=== PATIENT | male | born 1960 | race Hispanic/Latino ===

== ENCOUNTER 2016-11-06 10:42 | Day surgery (SDC) | payer OTHER, MEDICARE ==
[2016-10-26 10:37] VITALS: BMI 33.5
[2016-11-06] MEDS ORDERED: Propofol 10 mg/ml Inj (20 ML) ONE ×2 (12:31→13:02)
[2016-11-06] MEDS ORDERED: Sodium Chloride 0.9% 1,000 ML IV SCH (13:30)
[2016-11-06 13:55] VITALS: O2SAT 96
[2016-11-06 14:11] VITALS: BP 119/78; PULSE 72; RESP 20; TEMP 97.7
== END 2016-11-06 14:50 | disposition home or self-care (01) ==
LOC: ENDO 10:42
PROVIDERS: ATTEND Internal Medicine Gastroenterology
DX: D12.3 Benign neoplasm of transverse colon (principal); D12.0 Benign neoplasm of cecum; K63.5 Polyp of colon; K62.0 Anal polyp; K64.8 Other hemorrhoids
CPT/HCPCS: 45380; 45385; 88305; J2001; J2704; J7040 ×2

== ENCOUNTER 2017-11-07 10:07 | Inpatient (IN) | payer OTHER, MEDICARE ==
--- NOTE | 2017-11-07 11:25 | ED PDOC ---
Arrival/HPI <Woo Alonso - Last Filed: 11/07/17 15:34> <Jenae Peters - Last Filed: 11/10/17 08:14> - General Chief Complaint: Abdominal Pain Time Seen by Provider: 11/07/17 10:59 - History of Present Illness Narrative History of Present Illness (Text): 57 year old male with PMH of Hodgkin's lymphoma, Hairy Cell Leukemia, PE, SVT, Atrial firbrillation, Pneumonia, and Shingles presents with 5 days of intermittent left back pain that radiates to the groin. Patient vomited Saturday, reported dysuria, but has had neither of the symptoms since then. He riley to the ER last Saturday and had a CT scan confirming the nephrolithiasis. He saw his urologist, Dr. Craft, 2 days ago who ordered an X-ray for the patient. The results arrived yesterdays showing a [address] Craft instructed the patient to come to the [facility] ER to be seen and admitted to Dr. Huber 11/07/17 11:21 11/07/17 12:27 (Woo Alonso) Past Medical History - Provider Review Nursing Documentation Reviewed: Yes - Infectious Disease Hx of Infectious Diseases: None - Cardiac Hx Pacemaker: No - Neurological Hx Paralysis: No - Hematological/Oncological Hx Blood Transfusions: Yes (2010- TOTAL 8) Hx Blood Transfusion Reaction: No - Musculoskeletal/Rheumatological Hx Musculoskeletal Disorders: Yes - Psychiatric Hx Emotional Abuse: No Hx Physical Abuse: No Hx Substance Use: No - Anesthesia Hx Anesthesia Reactions: Yes (NAUSEA) Hx Malignant Hyperthermia: No - Suicidal Assessment Feels Threatened In Home Enviroment: No <Woo Alonso - Last Filed: 11/07/17 15:34> Family/Social History - Physician Review Nursing Documentation Reviewed: Yes Family/Social History: Unknown Family HX Smoking Status: Unknown If Ever Smoked Hx Alcohol Use: No Hx Substance Use: No <Woo Alonso - Last Filed: 11/07/17 15:34> Allergies/Home Meds <Woo Alonso - Last Filed: 11/07/17 15:34> <Jenae Peters - Last Filed: 11/10/17 08:14> Allergies/Adverse Reactions: Allergies No Known Allergies Allergy (Verified 11/07/17 15:25) Home Medications: Home Meds Medication Instructions Recorded Confirmed Allopurinol 100 mg PO QAM 11/03/15 11/07/17 Cholecalciferol (Vitamin D3) 50,000 unit PO WED 11/03/15 11/07/17 [Vitamin D3] Fenofibrate 48 mg PO QAM 11/03/15 11/07/17 Gabapentin [Gralise] 1,800 mg PO DIN 11/03/15 11/07/17 LORazepam [Ativan] 0.5 mg PO HS PRN 11/03/15 11/07/17 Prednisone 5 mg PO WED 11/03/15 11/07/17 Sotalol HCl [Sotalol] 80 mg PO BID 11/03/15 11/07/17 oxyCODONE [oxyCODONE Immediate 30 mg PO PRN PRN 11/03/15 11/07/17 Release Tab] Apixaban [Eliquis] 5 mg PO BID 10/26/16 11/07/17 Sertraline [Zoloft] 100 mg PO DAILY 11/07/17 11/07/17 Review of Systems - Physician Review All systems were reviewed & negative as marked: Yes - Review of Systems Constitutional: Normal Eyes: Normal ENT: Normal Respiratory: Normal Cardiovascular: Normal Gastrointestinal: Abdominal Pain (flank pain radiating to groin pain), Vomiting Genitourinary Male: Dysuria Musculoskeletal: Normal Skin: Normal Neurological: Normal <Woo Alonso - Last Filed: 11/07/17 15:34> Physical Exam Vital Signs Reviewed: Yes Temperature: Afebrile Blood Pressure: Normal Pulse: Regular Respiratory Rate: Normal Appearance: Positive for: Well-Appearing Pain Distress: None Mental Status: Positive for: Alert and Oriented X 3 - Systems Exam Head: Present: Atraumatic, Normocephalic Pupils: Present: PERRL Extroacular Muscles: Present: EOMI Conjunctiva: Present: Normal Nose (External): Present: Atraumatic Neck: Present: Normal Range of Motion Respiratory/Chest: Present: Clear to Auscultation Cardiovascular: Present: Regular Rate and Rhythm Abdomen: Present: Tenderness (LLQ) Back: Present: Other (flank pain) Upper Extremity: Present: Normal Inspection, Normal ROM, NORMAL PULSES Lower Extremity: Present: Normal Inspection, NORMAL PULSES, Normal ROM Neurological: Present: GCS=15, CN II-XII Intact, Speech Normal, Motor Func Grossly Intact Skin: Present: Warm, Dry, Normal Color Psychiatric: Present: Alert, Oriented x 3, Normal Insight, Normal Concentration <Woo Alonso - Last Filed: 11/07/17 15:34> <Jenae Peters - Last Filed: 11/10/17 08:14> Vital Signs Temp Pulse Resp BP Pulse Ox 11/07/17 14:08 100.0 F H 68 20 124/75 96 11/07/17 10:55 98.5 F 82 18 121/63 97 Medical Decision Making <Woo Alonso - Last Filed: 11/07/17 15:34> <Jenae Peters - Last Filed: 11/10/17 08:14> ED Course and Treatment: Impression: 57 year old male presents with 5 day history of flank pain radiating to his groin, 1 episode of vomiting 5 days ago, and 1 episode of dysuria 5 days ago. Assessment: nephrolithasis Plan: Ceftriaxone 1 gm IV NS 0.9% 1L CBC: WBC: 3.3. possibly due to chemotherapy patient was on CMP PT/INR PTT UA UC CXR: no active pulmonary disease EKG: Normal sinus rhythm Vent rate: 72 DE: 172 QRS: 86 QT/QTc: 410/448 11/07/17 15:34 (Woo Alonso) 11/07/17 14:42 57 year old male presents to the Emergency department for left flank pain. In agreement with resident note, which includes further HPI details. Patient was seen and evaluated with resident, came up with plan and treatment together. I reviewed patient's recent xray and reviewed with patient his understanding of his recent CT. While in ED he denies severe pain but does have persistent discomfort. Afebrile. No chills or nausea currently. Abdomen soft and nontender. I communicated with Dr. Craft and patient admitted due to persistent renal colic. (Jenae Peters) - Lab Interpretations Microbiology Results: Microbiology Results 11/07/17 12:20 Urine Urine Culture - Final No Growth (<1,000 CFU/ML) Lab Results: 11/07/17 12:20 11/07/17 12:20 Lab Results 11/07/17 12:20: Urine Color Yellow, Urine Appearance Clear, Urine pH 6.0, Ur Specific [place] 1.020, Urine Protein Negative, Urine Glucose (UA) Negative, Urine Ketones Negative, Urine Blood Moderate H, Urine Nitrate Negative, Urine Bilirubin Negative, Urine Urobilinogen 0.2, Ur Leukocyte Esterase Negative, Urine RBC 15 - 20, Urine WBC 0 - 2, Ur Epithelial Cells None 11/07/17 12:20: Sodium 139, Potassium 4.5, Chloride 105, Carbon Dioxide 24, Anion Gap 14, BUN 19, Creatinine 0.9, Est GFR ( Amer) > 60, Est GFR (Non- Af Amer) > 60, Random Glucose 105, Calcium 9.6, Total Bilirubin 0.7, AST 62 H, ALT 90 H, Alkaline Phosphatase 78, Total Protein 7.8, Albumin 4.5, Globulin 3.3 , Albumin/Globulin Ratio 1.4 11/07/17 12:20: WBC 3.3 L D, RBC 4.44, Hgb 14.1, Hct 40.9 L, MCV 92.1, MCH 31.8 , MCHC 34.5, RDW 12.6, Plt Count 119 L, MPV 9.8, Gran % 59.5, Lymph % (Auto) 34.7, [place] % (Auto) 3.4, Eos % (Auto) 2.1, Baso % (Auto) 0.3, Gran # 1.94, Lymph # (Auto) 1.1 L, [place] # (Auto) 0.1, Eos # (Auto) 0.1, Baso # (Auto) 0.01 11/07/17 11:19: PT 11.0, INR 0.96, APTT 22.1 L - RAD Interpretation Radiology Orders: 11/07/17 11:20 CHEST PORTABLE [RAD] Stat - Medication Orders Current Medication Orders: Discontinued Medications Allopurinol (Zyloprim) 100 mg PO QAM [facility] Last Admin: 11/08/17 11:35 Dose: Not Given Non-Admin Reason: NPO Apixaban (Eliquis) 5 mg PO BID TED PRN Reason: Protocol Apixaban (Eliquis) 5 mg PO BID TED PRN Reason: Protocol Ergocalciferol (Drisdol 50,000 Intl Units Cap) 1 cap PO We@1000 TED Gabapentin (Neurontin) 600 mg PO TID TED PRN Reason: Protocol Last Admin: 11/08/17 18:12 Dose: 600 mg Behavioural Document 11/08/17 18:12 Y (Rec: 11/08/17 18:12 [id number] Maintenance Maintenance Dose Yes Ceftriaxone Sodium (Rocephin 1 Gram Ivpb) 1 gm in 100 mls @ 200 mls/hr IVPB ONCE STA PRN Reason: Protocol Stop: 11/07/17 12:20 Last Admin: 11/07/17 12:26 Dose: 200 mls/hr eMAR Start Stop Document 11/07/17 12:26 MR (Rec: 11/07/17 12:26 MR [id number]) Intravenous Solution Start Date 11/07/17 Start Time 12:26 End Date 11/07/17 End time 12:56 Total Infusion Time 30 Sodium Chloride (Sodium Chloride 0.9%) 1,000 mls @ 100 mls/hr IV .Q10H [facility] Last Admin: 11/08/17 08:11 Dose: 100 mls/hr eMAR Start Stop Document 11/08/17 08:11 (Rec: 11/08/17 08:11 [id number] Intravenous Solution Start Date 11/08/17 Start Time 08:11 Ceftriaxone Sodium (Rocephin 1 Gram Ivpb) 1 gm in 100 mls @ 200 mls/hr IVPB STAT STA PRN Reason: Protocol Stop: 11/08/17 13:03 Last Admin: 11/08/17 12:41 Dose: 200 mls/hr eMAR Start Stop Document 11/08/17 12:41 SABINO (Rec: 11/08/17 13:01 [id number] Intravenous Solution Start Date 11/08/17 Start Time 12:41 End Date 11/08/17 End time 13:11 Total Infusion Time 30 Lorazepam (Ativan) 0.5 mg PO HS PRN; Protocol PRN Reason: Sleep Morphine Sulfate (Morphine) 5 mg IVP Q6H PRN PRN Reason: Pain, severe (8-10) Last Admin: 11/07/17 21:01 Dose: 5 mg MAR Pain Assessment Document 11/07/17 21:01 MJ (Rec: 11/07/17 21:01 MJ [id number]) Pain Reassessment Is this a pain reassessment? Yes Sleep Is patient sleeping during reassessment? No Presence of Pain Presence of Pain Yes Pain Scale Used Pain Scale Used Numeric Location Pain Location Body Site Abdomen Description Description Constant Intensity of Pain at present 8 Pain Behavior Moaning Alleviating Factors/Management Medication Techniques IVP Administration Document 11/07/17 21:01 MJ (Rec: 11/07/17 21:01 MJ [id number]) Charges for Administration # of IVP Administrations 1 Re-Assess: MAR Pain Assessment Document 11/07/17 22:01 (Rec: 11/08/17 02:36 [id number] Pain Reassessment Is this a pain reassessment? Yes Sleep Is patient sleeping during reassessment? Yes Oxycodone HCl (Oxycodone Immediate Release Tab) 5 mg PO Q4H PRN PRN Reason: Pain, moderate (4-7) Last Admin: 11/08/17 18:12 Dose: 5 mg SHELIA Pain Assessment Document 11/08/17 18:12 Y (Rec: 11/08/17 18:12 Y [id number]) Pain Reassessment Is this a pain reassessment? No Sleep Is patient sleeping during reassessment? No Presence of Pain Presence of Pain Yes Pain Scale Used Pain Scale Used Numeric Location Left, Right or Bilateral Left Description Intensity of Pain at present 6 Phenazopyridine HCl (Pyridium) 100 mg PO [facility] Stop: 11/09/17 10:01 Last Admin: 11/08/17 18:16 Dose: 100 mg Pneumococcal Polyvalent Vaccine (Pneumovax 23 Vaccine) 0.5 ml IM .ONCE ONE Stop: 11/07/17 18:53 Sertraline HCl (Zoloft) 100 mg PO DAILY [facility] Last Admin: 11/08/17 11:35 Dose: Not Given Non-Admin Reason: NPO Sertraline HCl (Zoloft) 100 mg PO ONCE ONE Stop: 11/08/17 18:53 Sertraline HCl (Zoloft) 100 mg PO ONCE ONE Stop: 11/07/17 19:30 Last Admin: 11/07/17 20:01 Dose: 100 mg Sotalol HCl (Betapace) 80 mg PO BID [facility] Last Admin: 11/08/17 18:12 Dose: 80 mg SHELIA Pulse and Blood Pressure Document 11/08/17 18:12 Y (Rec: 11/08/17 18:13 YJ [id number]) Pulse Pulse Rate (60-90) 91 Blood Pressure Blood Pressure (100/60-150/90) 129/79 - PA / ENGINEER AND GEOLOGIST / Resident Statement BRYANNA has reviewed & agrees with the documentation as recorded. / has examined the patient and agrees with the treatment plan. <Woo Alonso - Last Filed: 11/07/17 15:34> - PA / ENGINEER AND GEOLOGIST / Resident Statement BRYANNA has reviewed & agrees with the documentation as recorded. BRYANNA has examined the patient and agrees with the treatment plan. - Scribe Statement The provider has reviewed the documentation as recorded by the Scribe <Jenae Peters - Last Filed: 11/10/17 08:14> - Scribe Statement João Tatum. All medical record entries made by the Scribe were at my direction and personally dictated by me. I have reviewed the chart and agree that the record accurately reflects my personal performance of the history, physical exam, medical decision making, and the department course for this patient. I have also personally directed, reviewed, and agree with the discharge instructions and disposition. (Jenae Peters) Disposition/Present on Arrival - Present on Arrival Any Indicators Present on Arrival: No History of DVT/PE: No History of Uncontrolled Diabetes: No Urinary Catheter: No History of Decub. Ulcer: No History Surgical Site Infection Following: None - Disposition Have Diagnosis and Disposition been Completed?: Yes Disposition Time: 12:21 Patient Plan: Admission <Woo Alonso - Last Filed: 11/07/17 15:34> <Jenea Peters - Last Filed: 11/10/17 08:14> - Disposition Diagnosis: Nephrolithiasis Disposition: HOSPITALIZED Condition: STABLE
[2017-11-07] MEDS ORDERED: cefTRIAXone 1 gm 1 GM/100 ML BAG IVPB STA (11:51)
--- NOTE | 2017-11-07 12:11 | RAD ---
Date of service: 11/07/2017 HISTORY: r/o infiltrate COMPARISON: 03/23/2015. FINDINGS: LUNGS: The lungs are well inflated and clear. PLEURA: No significant pleural effusion identified, no pneumothorax apparent. CARDIOVASCULAR: Normal. OSSEOUS STRUCTURES: No significant abnormalities. VISUALIZED UPPER ABDOMEN: Normal. OTHER FINDINGS: None. IMPRESSION: No active pulmonary disease.
[2017-11-07] MEDS: Sodium Chloride 0.9% 1,000 ML IV SCH (12:21)
[2017-11-07 12:31] LABS: URINE BILIRUBIN NEGATIVE (NEGATIVE); URINE BLOOD MODERATE (NEGATIVE); URINE GLUCOSE (UA) NEGATIVE (NEGATIVE); URINE LEUKOCYTE ESTERASE NEGATIVE Leu/uL (NEGATIVE); URINE PROTEIN NEGATIVE mg/dL (<30 mg/dL); URINE UROBILINOGEN 0.2 E.U./dL (<1 E.U./dL)
[2017-11-07 12:32] LABS: URINE APPEARANCE CLEAR (CLEAR); URINE COLOR YELLOW (YELLOW)
[2017-11-07 12:38] LABS: BASO # 0.01 K/mm3 (0.0-2.0); BASO % 0.3 % (0.0-3.0); EOS # 0.1 (0.0-0.7); EOS % 2.1 % (1.5-5.0); GRAN # 1.94 (1.4-6.5); GRAN % 59.5 % (50.0-68.0); HEMOGLOBIN 14.1 g/dL (14.0-18.0); LYMPH # 1.1 (1.2-3.4); LYMPH % 34.7 % (22.0-35.0); MEAN CELL VOLUME 92.1 fl (80.0-105.0); MEAN CORPUSCULAR HEMOGLOBIN 31.8 pg (25.0-35.0); MEAN CORPUSCULAR HGB CONC 34.5 g/dl (31.0-37.0); MEAN PLATELET VOLUME 9.8 fl (7.0-11.0); MONO # 0.1 (0.1-0.6); MONO % 3.4 % (1.0-6.0); RBC 4.44 10^6/uL (3.5-6.1); RED CELL DISTRIBUTION WIDTH 12.6 % (11.5-14.5); WHITE BLOOD COUNT 3.3 10^3/ul (4.5-11.0)
[2017-11-07 12:45] LABS: URINE RBC 15 - 20 /hpf (0-2); URINE WBC 0 - 2 /hpf (0-6)
[2017-11-07 12:49] LABS: ALB/GLOB RATIO 1.4 (1.1-1.8); ALBUMIN 4.5 g/dL (3.0-4.8); ALT/SGPT 90 U/L (7-56); AST/SGOT 62 U/L (17-59); BLOOD UREA NITROGEN 19 mg/dL (7-21); CALCIUM 9.6 mg/dL (8.4-10.5); GFR AFRICAN-AMERICAN > 60; GFR NON-AFRICAN AMERICAN > 60
[2017-11-07 12:51] LABS: INR 0.96 (0.93-1.08); PARTIAL THROMBOPLASTIN TIME 22.1 Seconds (25.1-36.5)
--- NOTE | 2017-11-07 15:03 | CT ---
Date of service: 11/07/2017 PROCEDURE: CT Abdomen and Pelvis without intravenous contrast HISTORY: kidney stone COMPARISON: None. TECHNIQUE: Without contrast.. Contrast dose: Radiation dose: Total exam DLP = 1357 mGy-cm. This CT exam was performed using one or more of the following dose reduction techniques: Automated exposure control, adjustment of the mA and/or kV according to patient size, and/or use of iterative reconstruction technique. FINDINGS: LOWER THORAX: Unremarkable. LIVER: Unremarkable. No gross lesion or ductal dilatation. GALLBLADDER AND BILE DUCTS: Unremarkable. PANCREAS: Unremarkable. No gross lesion or ductal dilatation. SPLEEN: Unremarkable. ADRENALS: Unremarkable. No mass. KIDNEYS AND URETERS: There is a 5 mm stone in the left proximal ureter just below the UPJ. There is mild hydronephrosis. Smaller nonobstructing stones are seen in the left kidney VASCULATURE: Unremarkable. No aortic aneurysm. BOWEL: Unremarkable. No obstruction. No gross mural thickening. APPENDIX: Unremarkable. Normal appendix. PERITONEUM: Unremarkable. No free fluid. No free air. LYMPH NODES: Unremarkable. No enlarged lymph nodes. BLADDER: Unremarkable. REPRODUCTIVE: Unremarkable. BONES: No acute fracture. OTHER FINDINGS: None. IMPRESSION: There is a 5 mm stone in the left proximal ureter just below the UPJ. There is mild hydronephrosis. Smaller nonobstructing stones are seen in the left kidney
--- NOTE | 2017-11-07 15:18 | CP.PCM.HP ---
History of Present Illness - History of Present Illness History of Present Illness: Travon Pena DO PGY-2, Hematology and Oncology HPI for Dr. Huber 57 year-old male with a past medical history of Hodgkins lymphoma diagnosed in 1998 and treated with chemotherapy and radiation, Hairy cell leukemia diagnosed in 2010 look and treated with chemo chemo therapy in remission, atrial fib relation/flutter, history of VTE who presents with left sided flank pain that started on Saturday. He reports going to [facility] in [place] in which he underwent a CT of the abdomen and pelvis that showed a left renal stone without obstruction and was prescribed Flomax, Bactrim and Percocet 5 mg for pain. He did not take any of these medications until he saw his urologist, Dr. Craft, on Saturday who performed an an abdominal Plain film and told the patient to take the aformentioned medication and come to the ED on so that he could perform a urologic procedure Saturday the , tomorrow On Saturday, the patient did admit to severe left-sided think plane and some difficulty with urination. At the time of my examination, the pain is 3/10 , intermittent and he denies passing any stones in his urine. On ROS the patient denies any nausea, vomiting, fevers, chills, hematuria, dysuria, chest pain, shortness of breath, chills, easy bruising or bleeding. He will be admitted under Dr. Huber's service. We will discuss with Dr. Craft if he wants the patient on Elqiuis or not. 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, denies alcohol, tobacco, or illicit drug use Present on Admission - Present on Admission Any Indicators Present on Admission: Yes History of DVT/PE: Yes Review of Systems - Review of Systems All systems: reviewed and no additional remarkable complaints except (as per HPI ) Past Patient History - Infectious Disease Hx of Infectious Diseases: None - Past Social History Smoking Status: Unknown If Ever Smoked - CARDIAC Hx Pacemaker: No - NEUROLOGICAL Hx Paralysis: No - HEMATOLOGICAL/ONCOLOGICAL Hx Blood Transfusions: Yes (2010- TOTAL 8) Hx Blood Transfusion Reaction: No - MUSCULOSKELETAL/RHEUMATOLOGICAL Hx Musculoskeletal Disorders: Yes - PSYCHIATRIC Hx Emotional Abuse: No Hx Physical Abuse: No Hx Substance Use: No - SURGICAL HISTORY Hx Surgeries: Yes - ANESTHESIA Hx Anesthesia Reactions: Yes (NAUSEA) Hx Malignant Hyperthermia: No Meds Allergies/Adverse Reactions: Allergies Allergy/AdvReac Type Severity Reaction Status Date / Time No Known Allergies Allergy Verified 11/07/17 15:25 Physical Exam - Constitutional Appears: Well, Non-toxic - Head Exam Head Exam: ATRAUMATIC, NORMOCEPHALIC - Eye Exam Eye Exam: EOMI, Normal appearance - ENT Exam ENT Exam: Mucous Membranes Moist - Neck Exam Neck exam: Positive for: Normal Inspection - Respiratory Exam Respiratory Exam: Clear to Auscultation Bilateral, NORMAL BREATHING PATTERN. absent: Accessory Muscle Use - Cardiovascular Exam Cardiovascular Exam: RRR, +S1, +S2 - GI/Abdominal Exam GI & Abdominal Exam: Normal Bowel Sounds, Soft. absent: Guarding, Rebound - Rectal Exam Rectal Exam: absent: Deferred - Extremities Exam Extremities exam: Positive for: normal inspection. Negative for: calf tenderness - Back Exam Back exam: absent: CVA tenderness (L), CVA tenderness (R) - Neurological Exam Neurological exam: Alert, CN II-XII Intact, Oriented x3 - Psychiatric Exam Psychiatric exam: Normal Affect, Normal Mood - Skin Skin Exam: Dry, Intact, Normal Color, Warm - Additional Findings Additional findings: left axillary scar from prior surgery Results - Vital Signs Recent Vital Signs: Last Vital Signs Temp 100.0 F H 11/07/17 14:08 Pulse 68 11/07/17 14:08 Resp 20 11/07/17 14:08 BP 124/75 11/07/17 14:08 Pulse Ox 96 11/07/17 14:08 - Labs Result Diagrams: 11/07/17 12:20 11/07/17 12:20 Assessment & Plan - Assessment and Plan (Free Text) Assessment: 57 year-old male with a past medical history of Hodgkins lymphoma diagnosed in 1998 and treated with chemotherapy and radiation, Hairy cell leukemia diagnosed in 2010 look and treated with chemo chemo therapy in remission, atrial fib relation/flutter, history of VTE who presents with left sided flank pain that started on Saturday. He reports going to [facility] in [place] in which he underwent a CT of the abdomen and pelvis that showed a left renal stone without obstruction and was prescribed Flomax, Bactrim and Percocet 5 mg for pain. He did not take any of these medications until he saw his urologist, Dr. Craft, on Saturday who performed an an abdominal Plain film and told the patient to take the aformentioned medication and come to the ED on so that he could perform a urologic procedure Saturday the , tomorrow. We will resume all home medications. CT of the A/P without contrast shows There is a 5 mm stone in the left proximal ureter just below the UPJ. There is mild hydronephrosis. Smaller nonobstructing stones are seen in the left kidney. We oralia continue to monitor the patient and administrative secretary as appropriate. We will reach out to Dr. Craft in regards to holding Eliquis. Case reviewed and discussed with Dr. Hinojosa - Date & Time Date: 11/07/17 Time: 16:59
[2017-11-07 15:55] LABS: VENOUS BLOOD GAS PO2 131 mm/Hg (30-55); VENOUS BLOOD PH 7.38 (7.32-7.43)
[2017-11-07] MEDS ORDERED: oxyCODONE 30 mg Immediate Release Tab PO PRN (16:38)
[2017-11-07] MEDS ORDERED: GABAPENTIN 1800 MG PO SCH (17:00)
[2017-11-07 18:52] VITALS: BMI 34.5
[2017-11-07] MEDS ORDERED: Pneumococcal 23-Valent Vaccine IM ONE (18:52)
[2017-11-07] MEDS ORDERED: Morphine 5 MG/ML SYRINGE IVP PRN (19:01)
[2017-11-07] MEDS: oxyCODONE 5 mg Immediate Release Tab PO PRN (19:30)
--- NOTE | 2017-11-07 19:31 | CARD ---
APPROVED REPORT Date of service: 11/07/2017 EKG Measurement Heart [id number] <Conclusion> Normal sinus rhythm Possible Inferior infarct, age undetermined Abnormal ECG
[2017-11-07] MEDS ORDERED: Morphine 4 mg/ml ISec IVP PRN (20:53)
[2017-11-08] MEDS: oxyCODONE 5 mg Immediate Release Tab PO PRN ×2 (00:18→18:12)
[2017-11-08] MEDS: Sodium Chloride 0.9% 1,000 ML IV SCH ×2 (02:35→08:11)
[2017-11-08 06:22] LABS: BASO # 0.01 K/mm3 (0.0-2.0); BASO % 0.2 % (0.0-3.0); EOS % 0.4 % (1.5-5.0); GRAN # 3.28 (1.4-6.5); GRAN % 72.1 % (50.0-68.0); HEMOGLOBIN 13.8 g/dL (14.0-18.0); LYMPH # 1.1 (1.2-3.4); MEAN CELL VOLUME 93.5 fl (80.0-105.0); MEAN CORPUSCULAR HEMOGLOBIN 31.9 pg (25.0-35.0); MEAN CORPUSCULAR HGB CONC 34.2 g/dl (31.0-37.0); MEAN PLATELET VOLUME 9.4 fl (7.0-11.0); MONO # 0.2 (0.1-0.6); MONO % 3.3 % (1.0-6.0); RBC 4.32 10^6/uL (3.5-6.1); RED CELL DISTRIBUTION WIDTH 12.5 % (11.5-14.5); WHITE BLOOD COUNT 4.6 10^3/ul (4.5-11.0)
[2017-11-08 06:53] LABS: ALB/GLOB RATIO 1.4 (1.1-1.8); ALBUMIN 4.2 g/dL (3.0-4.8); ALT/SGPT 81 U/L (7-56); AST/SGOT 57 U/L (17-59); BLOOD UREA NITROGEN 19 mg/dL (7-21); CALCIUM 8.9 mg/dL (8.4-10.5); GFR AFRICAN-AMERICAN > 60; GFR NON-AFRICAN AMERICAN > 60
--- NOTE | 2017-11-08 07:54 | CP.PCM.PN ---
Subjective - Date & Time of Evaluation Date of Evaluation: 11/08/17 Time of Evaluation: 07:00 - Subjective Subjective: Average cardiac risk for planned urology intervention. See full consult note ( dictated). Give AM sotolol dose with sip water pre-op this AM. Rasheeda Mirza MD Objective - Vital Signs/Intake and Output Vital Signs (last 24 hours): Temp Pulse Resp BP Pulse Ox 99.8 F H 72 20 128/87 99 11/07/17 18:28 11/07/17 18:32 11/07/17 18:28 11/07/17 18:32 11/07/17 15:55 Intake and Output: 11/08/17 11/08/17 06:59 18:59 Intake Total 300 Balance 300 - Medications Medications: Current Medications Allopurinol (Zyloprim) 100 mg PO QAM TED Apixaban (Eliquis) 5 mg PO BID TED PRN Reason: Protocol Ergocalciferol (Drisdol 50,000 Intl Units Cap) 1 cap PO We@1000 TED Gabapentin (Neurontin) 600 mg PO TID TED PRN Reason: Protocol Last Admin: 11/07/17 18:32 Dose: 600 mg Sodium Chloride (Sodium Chloride 0.9%) 1,000 mls @ 100 mls/hr IV .Q10H [facility] Last Admin: 11/08/17 02:35 Dose: 100 mls/hr Lorazepam (Ativan) 0.5 mg PO HS PRN; Protocol PRN Reason: Sleep Morphine Sulfate (Morphine) 5 mg IVP Q6H PRN PRN Reason: Pain, severe (8-10) Last Admin: 11/07/17 21:01 Dose: 5 mg Oxycodone HCl (Oxycodone Immediate Release Tab) 5 mg PO Q4H PRN PRN Reason: Pain, moderate (4-7) Last Admin: 11/08/17 00:18 Dose: 5 mg Sertraline HCl (Zoloft) 100 mg PO DAILY [facility] Sotalol HCl (Betapace) 80 mg PO BID [facility] Last Admin: 11/07/17 18:32 Dose: 80 mg - Labs Labs: 11/08/17 05:30 11/08/17 05:30 PT 11.0 SECONDS (9.4-12.5) 11/07/17 11:19 INR 0.96 (0.93-1.08) 11/07/17 11:19 APTT 22.1 Seconds (25.1-36.5) L 11/07/17 11:19
--- NOTE | 2017-11-08 09:15 | CP.PCM.PN ---
Subjective - Date & Time of Evaluation Date of Evaluation: 11/08/17 Time of Evaluation: 09:14 - Subjective Subjective: Travon Pena DO, PGY-2: Hematology and Oncology Progress Note for Dr. Huber Patient was seen and examined at bedside. He is currently NPO. He reports having pain overnight that was relieved with the IV Morphine. He reports that his urologic procedure is at 10:30 AM. He states he stopped taking his Eliquis since Saturday. He denies any fever, chills, nausea or vomiting. Objective - Vital Signs/Intake and Output Vital Signs (last 24 hours): Temp Pulse Resp BP Pulse Ox 98 F 80 20 130/75 97 11/08/17 06:00 11/08/17 08:12 11/08/17 06:00 11/08/17 08:12 11/08/17 06:00 Intake and Output: 11/08/17 11/08/17 06:59 18:59 Intake Total 300 Balance 300 - Medications Medications: Current Medications Allopurinol (Zyloprim) 100 mg PO QAM TED Apixaban (Eliquis) 5 mg PO BID TED PRN Reason: Protocol Ergocalciferol (Drisdol 50,000 Intl Units Cap) 1 cap PO We@1000 TED Gabapentin (Neurontin) 600 mg PO TID TED PRN Reason: Protocol Last Admin: 11/07/17 18:32 Dose: 600 mg Sodium Chloride (Sodium Chloride 0.9%) 1,000 mls @ 100 mls/hr IV .Q10H [facility] Last Admin: 11/08/17 08:11 Dose: 100 mls/hr Lorazepam (Ativan) 0.5 mg PO HS PRN; Protocol PRN Reason: Sleep Morphine Sulfate (Morphine) 5 mg IVP Q6H PRN PRN Reason: Pain, severe (8-10) Last Admin: 11/07/17 21:01 Dose: 5 mg Oxycodone HCl (Oxycodone Immediate Release Tab) 5 mg PO Q4H PRN PRN Reason: Pain, moderate (4-7) Last Admin: 11/08/17 00:18 Dose: 5 mg Sertraline HCl (Zoloft) 100 mg PO DAILY TED Sotalol HCl (Betapace) 80 mg PO BID [facility] Last Admin: 07/13/18 08:12 Dose: 80 mg - Labs Labs: 11/08/17 05:30 11/08/17 05:30 PT 11.0 SECONDS (9.4-12.5) 11/07/17 11:19 INR 0.96 (0.93-1.08) 11/07/17 11:19 APTT 22.1 Seconds (25.1-36.5) L 11/07/17 11:19 - Constitutional Appears: Well, Non-toxic - Head Exam Head Exam: ATRAUMATIC, NORMOCEPHALIC - Eye Exam Eye Exam: EOMI, Normal appearance - ENT Exam ENT Exam: Mucous Membranes Moist - Neck Exam Neck Exam: Normal Inspection - Respiratory Exam Respiratory Exam: Clear to Ausculation Bilateral. absent: Accessory Muscle Use - Cardiovascular Exam Cardiovascular Exam: +S1, +S2. absent: Tachycardia - GI/Abdominal Exam GI & Abdominal Exam: Soft, Normal Bowel Sounds - Extremities Exam Extremities Exam: Normal Inspection. 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 He reports going to [facility] in [place] in which he underwent a CT of the abdomen and pelvis that showed a left renal stone without obstruction and was prescribed Flomax, Bactrim and Percocet 5 mg. He did not take any of these medications until he saw his urologist, Dr. Craft, on Saturday who performed an an abdominal Plain film and told the patient to take the aformentioned medication and come to the ED on so that he could perform a urologic procedure Saturday the , tomorrow. We will resume all home medications. CT of the A/P without contrast shows There is a 5 mm stone in the left proximal ureter just below the UPJ. There is mild hydronephrosis. Smaller nonobstructing stones are seen in the left kidney. The patient did stop taking his Eliquis on Saturday in preparation for the procedure. We will monitor the patient while he is in house and restart his Eliquis post-procedure. Cardiology was also consulted by Dr. Craft for pre-procedure risk assessment and recommendations. Case reviewed and discussed with Dr. Hinojosa and Dr. Huber
[2017-11-08] MEDS ORDERED: Lidocaine 2% Jelly (Uro-Jet) ONE (11:02)
[2017-11-08] MEDS ORDERED: Iohexol 240 (50 ml) ONE (11:02)
[2017-11-08] MEDS ORDERED: Iodixanol 320 mg/ml 50 ml Sol IV ONE (11:03)
[2017-11-08] MEDS ORDERED: Propofol 10 mg/ml Inj (20 ML) ONE ×2 (11:19→11:48)
[2017-11-08] MEDS ORDERED: Midazolam 2 MG/2 ML VIAL ONE (11:19)
[2017-11-08] MEDS ORDERED: Lidocaine 2% Jelly (30 ml) TOP ONE (11:45)
[2017-11-08] MEDS ORDERED: Iohexol 240 (50 ml) UR ONE (11:45)
[2017-11-08 12:30] VITALS: O2SAT 97
[2017-11-08] MEDS ORDERED: cefTRIAXone 1 gm 1 GM/100 ML BAG IVPB STA (12:34)
[2017-11-08] MEDS ORDERED: cefTRIAXone (Rocephin) 1 gm Inj ONE (12:38)
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
--- NOTE | 2017-11-08 14:01 | RAD ---
Date of service: 11/08/2017 PROCEDURE: Retrograde pyelogram HISTORY: STENT PLACEMENT COMPARISON: TECHNIQUE: 45.2 seconds fluoro time. 18.83 mGy cumulative dose. 12 images were submitted FINDINGS: The left renal collecting system and ureter are unremarkable. There is placement of a left ureteral stent IMPRESSION: As above
[2017-11-08 16:22] VITALS: RESP 20; TEMP 98.3
[2017-11-08 18:16] VITALS: BP 129/79; PULSE 91
--- NOTE | 2017-11-08 21:19 | OP ---
PROCEDURE DATE: 11/08/2017 PREOPERATIVE DIAGNOSIS: Left ureteral calculus. POSTOPERATIVE DIAGNOSIS: Left ureteral calculus. PROCEDURES: Cystoscopy, left retrograde pyelogram, insertion of a left ureteral stent. ATTENDING SURGEON: Toñito Craft MD ANESTHESIA: General. SPECIMENS: There were none. DRAINS: A 6 x 24 left ureteral stent. COMPLICATIONS: There were none. OPERATIVE FINDINGS: After informed consent was obtained, the patient was taken to the operating room, placed on the operating table and anesthesia was administered. The patient was placed in a dorsal lithotomy position and prepped and draped in usual sterile fashion. A 21-Uzbek cystoscope was placed in the patient's urethra and advanced proximally under direct vision until the bladder was entered. A full survey inspection of bladder was then performed which revealed no stones, bladder tumors or foreign bodies. There was a hutch diverticulum noted just superior and lateral to the left ureteral orifice. The left orifice was pinpoint, right ureteral orifice appeared within normal limits. At this point, attempt was made to catheterize the left ureter with an open-ended ureteral catheter. This was unsuccessful and a sensor wire was obtained. The sensor wire was able to be passed into the left ureteral orifice. The open-ended ureteral catheter was then able to be advanced into the left ureter. The guidewire was then removed and a left retrograde pyelogram was performed. The left retrograde pyelogram showed a filling defect in the upper ureter. There was mild dilation of the renal pelvis above this. During the retrograde, the filling defect was noted to migrate into the renal pelvis. The remainder of the ureter appeared within normal limits with no evidence of filling defect. At this point, the wire was re-passed through the open-ended ureteral catheter and was advanced up the ureter under fluoroscopic guidance until it coiled in the upper collecting system. With the wire in place, a large amount of turbid-appearing urine was noted exiting from the left ureteral orifice. At this point, decision was made to place a ureteral stent. A 6 x 24 stent was obtained and it was passed over the wire through the cystoscope and into the left ureter. The stent was then advanced proximally under direct and fluoroscopic guidance until it was in at the appropriate position. When the stent was in place, the guidewire was removed. A coil was seen in the left renal pelvis around the previously mentioned filling defect. A coil was seen in the bladder on cystoscopy. At this point, the procedure was completed, the bladder was drained and the cystoscope was removed. Contrast was noted to be draining out of the kidney on fluoroscopy. The patient tolerated the procedure well. He was returned to the supine position and taken to the recovery room awake in stable condition. Toñito Craft MD
--- NOTE | 2017-11-09 17:01 | DS ---
SUBJECTIVE: Patient is a 57-year-old male status post procedure earlier today with Dr. Craft, Urology, where the patient had a cystoscopy with left retrograde pyelogram, insertion of a left ureteral stent for his left ureteral stone and hydronephrosis. After conversation with Dr. Craft and Dr. Huber, Dr. Craft recommends discharging patient home today on Vantin 200 mg twice a day for 5 days and to continue his present medical regimen with followup next week. However, the patient does plan to take a trip next week with recommendation to follow up prior to his leaving on his trip should there be any complications of the procedure or increasing discomfort. At present, patient reports some discomfort on voiding as his only complaint. Otherwise, he is anxious for discharge home today. One is referred to the previous note earlier today from the medical office technician. OBJECTIVE: VITAL SIGNS: Temperature 98.3, pulse 91, respirations 20, blood pressure 129/79, pulse ox 97%. HEENT: Unremarkable. NECK: Supple. HEART: Regular rate. LUNGS: Clear. ABDOMEN: Obese, soft, nontender. EXTREMITIES: No edema. SKIN: Warm and dry. NEUROLOGIC: Awake, alert. GENITOURINARY: Patient does have a urinal at the bedside with a spirometer at the bedside which he is using. EXTREMITIES: He also has alternating compression devices on his lower extremities. LABORATORY DATA: Patient's labs were done. White blood cell count of 4.6, hemoglobin 13.8, hematocrit of 40.4, platelet count of 123,000 with chem metabolic panel completely within normal range except for an ALT of 81. Patient's urine culture showed no growth after 24 hours as listed above. ASSESSMENT: For this patient is that of nephrolithiasis with pain status post left ureteral stent placement after cystoscopy by Dr. Craft, Urology, with the patient known to suffer from hairy cell leukemia in remission. 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 PLAN: For this patient, after conversation with Dr. Huber and Dr. Craft, is to discharge patient home. We will restart his Eliquis tomorrow morning. He would get his Vantin from the pharmacy, on the ground floor of the hospital, to be taken twice a day for 5 days. His other medications as per the resident will be continued with followup next week prior to his trip on vacation or earlier p.r.n. Otherwise, after he returns from his trip, he will follow up with Dr. Huber in the office. His diet is regular diet. Activities are home, for approximately 2 days' time, use the spirometer as indicated, and slow increase to full activities, and also with Dr. Craft's recommendations to be followed. This is a complex patient with a comprehensive medical necessity and appropriate visit carried out in excess of 40 minutes with discharge planning with phone call conversations held as above with patient's also contacted in regards to his discharge home today. Bladimir Barrios MD
[2017-11-13] MEDS ORDERED: Ergocalciferol 50,000 Intl Units Cap PO SCH (10:00)
== END 2017-11-08 20:50 | disposition home or self-care (01) | DRG 694 ==
LOC: ED 10:07 → ERH 14:17 → 5RSO 16:12
PROVIDERS: ADMIT Family Medicine; ATTEND Family Medicine
PROC: 0WHR8YZ Insertion of Other Device into Genitourinary Tract, Via Natural or Artificial Opening Endoscopic (ICD-10-PCS; principal; 2017-11-08 10:30)
PROC: BT1F1ZZ Fluoroscopy of Left Kidney, Ureter and Bladder using Low Osmolar Contrast (ICD-10-PCS; 2017-11-08 10:30)
DX: N13.2 Hydronephrosis with renal and ureteral calculous obstruction (principal); B02.29 Other postherpetic nervous system involvement; I48.92 Unspecified atrial flutter; I48.0 Paroxysmal atrial fibrillation; Z79.01 Long term (current) use of anticoagulants; Z85.6 Personal history of leukemia; Z85.71 Personal history of Hodgkin lymphoma; Z86.718 Personal history of other venous thrombosis and embolism; Z87.442 Personal history of urinary calculi; Z92.21 Personal history of antineoplastic chemotherapy; Z92.3 Personal history of irradiation

== ENCOUNTER 2018-01-13 07:07 | Day surgery (SDC) | payer OTHER, MEDICARE ==
[2017-12-18 11:27] VITALS: BMI 33.5
[2018-01-13] MEDS ORDERED: Propofol 10 mg/ml Inj (20 ML) ONE (08:29)
[2018-01-13] MEDS ORDERED: Midazolam 2 MG/2 ML VIAL ONE (08:29)
[2018-01-13] MEDS ORDERED: cefTRIAXone (Rocephin) 1 gm Inj ONE (08:44)
[2018-01-13] MEDS ORDERED: HYDROmorphone 0.5 mg/0.5 ml ISec IVP PRN (09:29)
[2018-01-13] MEDS ORDERED: Lactated Ringer's 1,000 ML IV SCH (09:30)
[2018-01-13 10:40] VITALS: RESP 20; TEMP 97.6
--- NOTE | 2018-01-13 11:14 | RAD ---
Date of service: 01/13/2018 PROCEDURE: Fluoroscopy up to 1 hour HISTORY: CYSTO COMPARISON: TECHNIQUE: 47.9 seconds of fluoro time. 20.24 mGy cumulative dose. 11 images submitted FINDINGS: The study shows removal of a left ureteral stent and placement of wires and instruments in the left ureter. There is a mildly dilated renal pelvis. The calices are not blunted. Possible UPJ obstruction or stenosis IMPRESSION: As above
[2018-01-13 11:21] VITALS: BP 142/80; PULSE 68; O2SAT 97
--- NOTE | 2018-01-13 11:26 | OP ---
PROCEDURE DATE: 01/13/2018 PREOPERATIVE DIAGNOSIS: Left ureteral calculus. POSTOPERATIVE DIAGNOSIS: Left ureteral calculus. PROCEDURE: Cystoscopy, removal of left ureteral stent, left retrograde pyelogram, left ureteroscopy, laser lithotripsy of left ureteral calculus and basket extraction of ureteral calculi. ATTENDING SURGEON: Dr. Toñito Craft ANESTHESIA: General. SPECIMENS: There were stone fragments, sent to Pathology. DRAINS: There were none. COMPLICATIONS: There were none. OPERATIVE FINDINGS: After informed consent was obtained, the patient was taken to operating room, placed on operating table. Anesthesia was administered. The patient was placed in dorsal lithotomy position and prepped and draped in usual sterile fashion. The patient received IV antibiotics prior to start of the procedure. A 21-Mosotho cystoscope was placed in the patient's urethra and advanced proximally under direct vision until the bladder was entered. A full survey inspection of bladder was then performed which revealed no papillary bladder tumors. There was a stent noted exiting from the left ureteral orifice. There was some mild encrustation of stent noted. The right ureteral orifice was visualized and appeared within normal limits. At this point on fluoroscopy, no obvious calcifications were noted alongside the stent. A grasping forceps was then passed, the stent was grasped at its end and withdrawn through the urethral meatus. The upper limb was noted to uncoil easily on fluoroscopy. The stent was then removed from the patient and removed from the operative field. The cystoscope was then repassed. There was some mild bullous edema noted around the left ureteral orifice. A 5-Mosotho Pollack catheter was then introduced through the cystoscope and guided into the left ureteral orifice. When inside the orifice, contrast was then instilled into the system. There appeared to be a possible small filling defect in the lower ureter. The ureter was of normal caliber. There was some mild dilation of the renal pelvis, but no hydronephrosis noted. At this point, a sensor wire was obtained. The sensor wire was then passed through the open-ended ureteral catheter and advanced up the ureter into the kidney under fluoroscopic guidance. The open-ended catheter was then removed, the bladder was then drained and the cystoscope was removed. A 7-Mosotho semi-rigid ureteroscope was then obtained. It was passed into the urethra and guided into the bladder under direct vision. The ureteroscope was then advanced into the left ureter. It was advanced up the ureter under direct vision. Approximately 2 to 3 cm above the ureterovesical junction, a large yellowish stone was encountered. At this point, a holmium laser fiber was obtained, it was passed through the ureteroscope and under direct vision, fragmentation of the stone was begun. The stone was able to be easily fragmented into multiple small pieces. At this point, the ureteroscope was then advanced more proximally under direct vision. The ureteroscope was able to be advanced up into the renal pelvis without any difficulty. There were no other stones or abnormalities noted. At this point, the ureteroscope was then withdrawn under direct vision. In the midportion of the lower ureter, there were some fragments noted. At this point, a stone basket was obtained, the laser fiber was removed and a stone basket was passed. The larger pieces were able to be grasped and removed without difficulty. Few of the larger fragments were sent to Pathology as specimen. On the last pass of the ureteroscope, there were no further remaining fragments noted and at this point, the procedure was complete. There was some small fragments noted in the bladder and after the ureteroscope was removed, the cystoscope was then repassed while back loading the guidewire. The guidewire was removed. The open-ended ureteral catheter was again passed and contrast was instilled into the system. There was no evidence of extravasation and at this point, the open-ended ureteral catheter was removed. Contrast was seen to be exiting from the renal pelvis into the ureter down the ureter and into the bladder without any evidence of obstruction. The bladder was then irrigated and the small amount of debris and tiny stones were evacuated. At this point, the bladder was drained and cystoscope was removed. The patient tolerated the procedure well and was returned to the supine position and taken to the recovery room awake in stable condition. Toñito Craft MD
== END 2018-01-13 12:15 | disposition home or self-care (01) ==
LOC: SDS 07:07
PROVIDERS: ATTEND Urology
DX: N20.1 Calculus of ureter (principal)
CPT/HCPCS: 52356; 88300; C1758; C1769; J0696; J1170; J2001; J2250; J2405; J2704; J3010; J7120 ×2

== ENCOUNTER 2018-07-02 16:47 | Outpatient (CLI) | payer OTHER, MEDICARE | END 2018-07-02 16:48 | disposition home or self-care (01) | LOC: RAD 16:47 ==